=== PATIENT | male | born 1950 | race African-American/Black ===

== ENCOUNTER 2017-09-13 08:13 | Outpatient (CLI) | payer MEDICARE ==
--- NOTE | 2017-09-13 10:21 | ULT ---
ULTRASOUND ABDOMEN COMPLETE: Date: 09/13/17 INDICATION: Abdominal pain. TECHNIQUE: Malloy-scale ultrasound evaluation of the liver, gallbladder, spleen, pancreas, common bile duct, kidne ys, abdominal aorta, and inferior vena cava (IVC). FINDINGS: There is no evidence of a focal hepatic lesion. No acute gallbladder pathology. There are small cysts of each kidney without hydronephrosis. The pancreas and aorta are partially obscured by persistent b owel content, which does limit their assessment. No acute abnormality of the spleen evident. No evide nce of ascites. The common duct, as visualized, measures 5.0 mm in diameter. IMPRESSION: 1. Small bilateral renal cysts. 2. No acute abnormality identified. 3. Additional details are described above. POS: [facility]
== END 2017-09-13 08:14 | disposition home or self-care (01) ==
LOC: SCSULT 08:13
PROVIDERS: ATTEND Family Medicine
DX: R19.03 Right lower quadrant abdominal swelling, mass and lump (principal); R10.30 Lower abdominal pain, unspecified; N28.1 Cyst of kidney, acquired
CPT/HCPCS: 76700